=== PATIENT | female | born 1960 | race Caucasian/White ===

== ENCOUNTER → 2016-09-19 | Outpatient (CLI) | payer OTHER ==
--- NOTE | 2016-09-20 13:26 | MM ---
Reason for exam: screening (asymptomatic). Last mammogram was performed 7 months ago. History: Patient is postmenopausal. Family history of breast cancer in paternal grandmother and breast cancer in maternal grandmother. Benign MG stereo VAD BX LT of the left breast, March 06, 2016. Benign US biopsy breast VAD LT of the left breast, March 06, 2016. Excisional biopsy of the right breast, August 2005. Taking estrogen for 2 years beginning at age 46. Physical Findings: A clinical breast exam by your physician is recommended on an annual basis and results should be correlated with mammographic findings. MG 3D Screening Mammo W/Cad Bilateral CC and MLO view(s) were taken. Prior study comparison: February 16, 2016, left breast MG work up mamm w CAD LT. February 14, 2016, bilateral MG screening mammo w CAD. The breast tissue is extremely dense which could obscure a lesion on mammography. Scar marker on the right breast. Previous mammotome biopsy in the left breast x 2. No significant changes when compared with prior studies. ASSESSMENT: Benign, BI-RAD 2 RECOMMENDATION: Routine screening mammogram of both breasts in 1 year.
== END ==
LOC: RADMAMWWP 07:59
PROVIDERS: ATTEND Family Medicine
DX: Z12.31 Encounter for screening mammogram for malignant neoplasm of breast (principal)
CPT/HCPCS: 77063; G0202

== ENCOUNTER → 2018-01-28 | Outpatient (CLI) | payer BC ==
--- NOTE | 2018-01-29 08:07 | MM ---
Reason for exam: screening (asymptomatic). Last mammogram was performed 1 year and 4 months ago. History: Patient is postmenopausal. Family history of breast cancer in paternal grandmother and breast cancer in maternal grandmother. Benign MG stereo VAD BX LT of the left breast, March 06, 2016. Benign US biopsy breast VAD LT of the left breast, March 06, 2016. Excisional biopsy of the right breast, August 2005. Took estrogen for 2 years beginning at age 46. Physical Findings: A clinical breast exam by your physician is recommended on an annual basis and results should be correlated with mammographic findings. MG 3D Screening Mammo W/Cad Bilateral CC and MLO view(s) were taken. Prior study comparison: September 19, 2016, bilateral MG 3d screening mammo w/cad. February 16, 2016, left breast MG work up mamm w CAD LT. The breast tissue is extremely dense which could obscure a lesion on mammography. Previous mammotome biopsy in the left breast. No significant changes when compared with prior studies. ASSESSMENT: Benign, BI-RAD 2 RECOMMENDATION: Routine screening mammogram of both breasts in 1 year.
== END | disposition home or self-care (01) ==
LOC: RADMAMWWP 06:51
PROVIDERS: ATTEND Family Medicine
DX: Z12.31 Encounter for screening mammogram for malignant neoplasm of breast (principal)
CPT/HCPCS: 77063; 77067

== ENCOUNTER → 2018-02-11 | Outpatient (CLI) | payer BC ==
[2018-02-11 08:24] LABS: Appearance,Urine Clear (Clear); Bilirubin,Urine Negative (Negative); Blood,Urine Negative (Negative); Color,Urine Yellow; Glucose,Urine (UA) Negative (Negative); Ketones,Urine Negative (Negative); Leukocyte Esterase,Urine Negative (Negative); Nitrite,Urine Negative (Negative); PH, Urine 5.5 (5.0-8.0); Protein,Urine Negative (Negative); Specific Gravity,Urine 1.015 (1.001-1.035); Urobilinogen,Urine <2.0 mg/dL (<2.0)
[2018-02-11 08:25] LABS: HCT 40.8 % (34.0-46.0); HGB 13.6 gm/dL (11.4-16.0); MCH 29.4 pg (25.0-35.0); MCHC 33.2 g/dL (31.0-37.0); MCV 88.6 fL (80.0-100.0); Mean Platelet Volume 7.1; Platelet Count 224 k/uL (150-450); RBC 4.61 m/uL (3.80-5.40); RDW 13.9 % (11.5-15.5); WBC 4.9 k/uL (3.8-10.6)
[2018-02-11 08:56] LABS: ALT 26 U/L (9-52); AST 22 U/L (14-36); Albumin 4.3 g/dL (3.5-5.0); Alkaline Phosphatase 69 U/L (38-126); Anion Gap 8 mmol/L; Blood Urea Nitrogen 17 mg/dL (7-17); Calcium 9.8 mg/dL (8.4-10.2); Carbon Dioxide 28 mmol/L (22-30); Chloride 106 mmol/L (98-107); Cholesterol 210 mg/dL (<200); Glucose 88 mg/dL (74-99); Potassium 5.1 mmol/L (3.5-5.1); Sodium 142 mmol/L (137-145); Total Bilirubin 0.5 mg/dL (0.2-1.3); Total Protein 6.8 g/dL (6.3-8.2); Triglycerides 44 mg/dL (<150)
[2018-02-11 09:03] LABS: LDL Cholesterol,Calculated 82 mg/dL (0-99)
[2018-02-11 09:06] LABS: HDL Cholesterol 119 mg/dL (40-60)
== END | disposition home or self-care (01) ==
LOC: LABWHC1 06:59
PROVIDERS: ATTEND Family Medicine
DX: Z00.00 Encounter for general adult medical examination without abnormal findings (principal); Z13.9 Encounter for screening, unspecified
CPT/HCPCS: 36415; 80053; 80061; 81003; 85027; 86803

== ENCOUNTER 2018-06-01 10:30 | Emergency (ER) | payer BC ==
[2018-06-01 10:37] VITALS: TEMP 98
--- NOTE | 2018-06-01 11:07 | ED ---
Back Pain HPI - General Chief Complaint: Back Pain/Injury Stated Complaint: fall, back pain Time Seen by Provider: 06/01/18 10:41 Source: patient, RN notes reviewed Limitations: no limitations - History of Present Illness Initial Comments: 57-year-old female presents emergency Department chief complaint of low back pain, rib pain. Patient states that she was walking down 2 steps from her hot tub and states that she twisted and fell hitting the still of the door wall. Patient states that she had her left side of her ribs, low back. She states pain is worse today cannot tolerate work. She states it is worse with movement and deep inspiration. Denies any head or neck injury. Denies any chest pain, bowel bladder incontinence or retention. Denies any hematuria. - Related Data Home Medications Medication Instructions Recorded Confirmed Estrogens, Conjugated [Premarin] 0.625 mg PO DAILY 10/19/14 10/21/14 Ibuprofen [Advil] 400 mg PO Q8HR PRN 10/19/14 10/19/14 Multivitamins, Thera [Theragran] 1 each PO DAILY@1200 10/19/14 10/19/14 Previous Rx's Medication Instructions Recorded Ibuprofen [Motrin] 600 mg PO Q8HR PRN #30 tab 06/01/18 Allergies Allergy/AdvReac Type Severity Reaction Status Date / Time No Known Allergies Allergy Verified 06/01/18 10:37 Review of Systems ROS Statement: Those systems with pertinent positive or pertinent negative responses have been documented in the HPI. ROS Other: All systems not noted in ROS Statement are negative. Past Medical History Past Medical History: No Reported History History of Any Multi-Drug Resistant Organisms: None Reported Past Surgical History: Breast Surgery, Section, Hysterectomy, Orthopedic Surgery Additional Past Surgical History / Comment(s): RIGHT BREAST BIOPSY X3 ,RIGHT KNEE ARTHROSCOPIC Past Anesthesia/Blood Transfusion Reactions: No Reported Reaction Past Psychological History: No Psychological Hx Reported Smoking Status: Never smoker Past Alcohol Use History: Occasional Past Drug Use History: None Reported - Past Family History Mother Family Medical History: Cancer Additional Family Medical History / Comment(s): LUNG CANCER General Exam Limitations: no limitations General appearance: alert, in no apparent distress Head exam: Present: atraumatic, normocephalic, normal inspection Eye exam: Present: normal appearance, PERRL, EOMI. Absent: scleral icterus, conjunctival injection, periorbital swelling Neck exam: Present: normal inspection, full ROM. Absent: tenderness, meningismus, lymphadenopathy Respiratory exam: Present: normal lung sounds bilaterally, chest wall tenderness (Left lower ribs posteriorly). Absent: respiratory distress, wheezes , rales, rhonchi, stridor Cardiovascular Exam: Present: regular rate, normal rhythm, normal heart sounds. Absent: systolic murmur, diastolic murmur, rubs, gallop, clicks GI/Abdominal exam: Present: soft, normal bowel sounds. Absent: distended, tenderness, guarding, rebound, rigid Extremities exam: Present: normal inspection, full ROM, normal capillary refill. Absent: tenderness, pedal edema, joint swelling, calf tenderness Back exam: Present: full ROM, tenderness, paraspinal tenderness, vertebral tenderness (Lumbar) Neurological exam: Present: alert, oriented X3, CN II-XII intact, reflexes normal. Absent: motor sensory deficit Skin exam: Present: warm, dry, intact, normal color. Absent: rash Course Vital Signs 06/01/18 10:35 Temperature 98 F Pulse Rate 78 Respiratory 20 Rate Blood Pressure 138/74 O2 Sat by Pulse 99 Oximetry Medical Decision Making - Medical Decision Making 57-year-old male presented for a fall. X-rays are obtained of the left ribs, lumbar region no acute fracture. Patient will be discharged with follow-up return parameters were discussed. Disposition Clinical Impression: Fall, Rib contusion, Back pain Disposition: HOME SELF-CARE Condition: Stable Instructions: Rib Contusion (ED) Additional Instructions: Please return to the Emergency Department if symptoms worsen or any other concerns. Prescriptions: Ibuprofen [Motrin] 600 mg PO Q8HR PRN #30 tab PRN Reason: Pain Is patient prescribed a controlled substance at d/c from ED?: No Referrals: Vazquez Rubin MD [Primary Care Provider] - 1-2 days Time of Disposition: 11:44
--- NOTE | 2018-06-01 11:30 | XR ---
EXAMINATION TYPE: XR lumbar spine 2 or 3V , 3 VIEWS DATE OF EXAM ORDERED: 06/01/2018 HISTORY: Pain. COMPARISON: None. FINDINGS: Vertebral body height and alignment are maintained. There is no spondylolysis or spondylol isthesis. There is mild, diffuse disc space loss with relative sparing of L5-S1. The pedicles are int act. Paraspinal soft tissues are unremarkable. IMPRESSION: 1. NO ACUTE OSSEOUS ABNORMALITY. 2. MILD DEGENERATIVE CHANGE.
--- NOTE | 2018-06-01 11:32 | XR ---
EXAMINATION TYPE: XR ribs LT w pa chest xray , 5 VIEWS DATE OF EXAM ORDERED: 06/01/2018 HISTORY: Pain. COMPARISON: None. FINDINGS: The lungs are clear. Pleural spaces are clear. Heart size is normal. No pneumothorax is se en. No displaced rib fracture is seen. IMPRESSION: NORMAL CHEST AND LEFT RIBS.
[2018-06-01] MEDS ORDERED: KETOROLAC 30 MG/ML 1 ML VIAL IVP STA (11:49)
[2018-06-01 12:39] VITALS: BP 122/80; PULSE 62; RESP 18
== END 2018-06-01 12:38 | disposition home or self-care (01) ==
LOC: EC 10:30
DX: S20.212A Contusion of left front wall of thorax, initial encounter (principal); M54.5 Low back pain; Z79.899 Other long term (current) drug therapy; W10.9XXA Fall (on) (from) unspecified stairs and steps, initial encounter; W22.8XXA Striking against or struck by other objects, initial encounter; Y93.01 Activity, walking, marching and hiking; Y92.009 Unspecified place in unspecified non-institutional (private) residence as the place of occurrence of the external cause
CPT/HCPCS: 99283; 96374; 71101; 72100; J1885

== ENCOUNTER → 2019-06-24 | Outpatient (CLI) | payer BC ==
--- NOTE | 2019-06-25 11:26 | MM ---
Reason for exam: screening (asymptomatic). Last mammogram was performed 1 year and 5 months ago. History: Patient is postmenopausal. Family history of breast cancer in paternal grandmother and breast cancer in maternal grandmother. Benign MG stereo VAD BX LT of the left breast, March 06, 2016. Benign US biopsy breast VAD LT of the left breast, March 06, 2016. Excisional biopsy of the right breast, August 2005. Took estrogen for 2 years beginning at age 46. Physical Findings: A clinical breast exam by your physician is recommended on an annual basis and results should be correlated with mammographic findings. MG 3D Screening Mammo W/Cad Bilateral CC and MLO view(s) were taken. Prior study comparison: January 28, 2018, bilateral MG 3d screening mammo w/cad. September 19, 2016, bilateral MG 3d screening mammo w/cad. The breast tissue is extremely dense which could obscure a lesion on mammography. There are benign appearing round calcifications bilaterally. Previous mammotome biopsy in the left breast x 2. There is no discrete abnormality. ASSESSMENT: Benign, BI-RAD 2 RECOMMENDATION: Routine screening mammogram of both breasts in 1 year.
== END | disposition home or self-care (01) ==
LOC: RADMAMWWP 15:44
PROVIDERS: ATTEND Family Medicine
DX: Z12.31 Encounter for screening mammogram for malignant neoplasm of breast (principal)
CPT/HCPCS: 77063; 77067

== ENCOUNTER 2020-10-19 08:10 | Emergency (ER) | payer BC ==
[2020-10-19 08:14] VITALS: TEMP 98
[2020-10-19] MEDS ORDERED: SODIUM CHLORIDE 0.9% 1,000 ML IV STA (08:30)
[2020-10-19] MEDS ORDERED: LORazepam 2 MG/ML INJ IV STA (08:30)
--- NOTE | 2020-10-19 08:33 | ED ---
General Adult HPI - General Chief complaint: Overdose Stated complaint: Nausea,Dizziness,Disoriented Time Seen by Provider: 10/19/20 08:17 Source: patient Mode of arrival: ambulatory Limitations: no limitations - History of Present Illness Initial comments: Dictation was produced using [employer] dictation software. please excuse any grammatical, word or spelling errors. Chief Complaint: 59-year-old female presents to the emergency department for nausea, fatigue and weakness after ingestion of marijuana capsule History of Present Illness: 59-year-old female she presents today with symptoms of weakness, disorientation and nausea after ingestion of marijuana capsule. Patient has not had marijuana in more than 40 years. She received this capsule from her family member to help with her sleeping issues. Patient has any abdominal pain. She ingested this pill at around 8:30 PM last night. She states that she felt defects shortly after ingestion and has continued to have some effects. Patient has any medical problems. She takes hormone replacement pills after having had a LENNOX/BSO. Denies any fever, chills or night sweats. The ROS documented in this emergency department record has been reviewed and confirmed by me. Those systems with pertinent positive or negative responses have been documented in the HPI. All other systems are other negative and/or noncontributory. PHYSICAL EXAM: General Impression: Alert and oriented x3, not in acute distress HEENT: Normocephalic atraumatic, extra-ocular movements intact, pupils equal and reactive to light bilaterally, mucous membranes moist. Cardiovascular: Heart regular rate and rhythm Chest: Able to complete full sentences, no retractions, no tachypnea Abdomen: abdomen soft, non-tender, non-distended, no organomegaly Musculoskeletal: Pulses present and equal in all extremities, no peripheral edema Motor: no focal deficits noted Neurological: CN II-XII grossly intact, no focal motor or sensory deficits noted Skin: Intact with no visualized rashes Psych: Flat affect ED course: 59-year-old feel presents with marijuana intoxication after ingestion of oral capsule preparation of marijuana. Vital signs upon arrival shows findings within acceptable limits. After evaluation obtained. CBC, metabolic panel is within acceptable limits. Patient treated with 1 dose of Ativan. Patient is reevaluated at bedside at 9:15 AM. She was observed in the emergency department for proximal one hour in stable medical condition. Patient's clinical presentation consistent with cannabis intoxication. Patient be discharged per she is given a prescription for antiemetics. She advised to go home and rest until the effects wear off. Temperature was discussed. Patient discharged under the care of her neighbor. EKG interpretation: Ventricular rate 84, normal sinus rhythm, NM interval 160, QRS 74, QTC 444. No NM prolongation, no QTC prolongation, no ST or T-wave nate nges noted. Overall, this EKG is unremarkable - Related Data Home Medications Medication Instructions Recorded Confirmed Estrogens, Conjugated [Premarin] 0.625 mg PO DAILY 10/19/14 10/19/20 Omeprazole Magnesium [PriLOSEC OTC] 20 mg PO DAILY 10/19/20 10/19/20 Allergies Allergy/AdvReac Type Severity Reaction Status Date / Time No Known Allergies Allergy Verified 10/19/20 09:01 Review of Systems ROS Statement: Those systems with pertinent positive or pertinent negative responses have been documented in the HPI. ROS Other: All systems not noted in ROS Statement are negative. Past Medical History Past Medical History: No Reported History History of Any Multi-Drug Resistant Organisms: None Reported Past Surgical History: Breast Surgery, Section, Hysterectomy, Orthopedic Surgery Additional Past Surgical History / Comment(s): RIGHT BREAST BIOPSY X3 ,RIGHT KNEE ARTHROSCOPIC Past Anesthesia/Blood Transfusion Reactions: No Reported Reaction Past Psychological History: No Psychological Hx Reported Smoking Status: Never smoker Past Alcohol Use History: Occasional Past Drug Use History: Marijuana - Past Family History Mother Family Medical History: Cancer Additional Family Medical History / Comment(s): LUNG CANCER General Exam Limitations: no limitations Course Vital Signs 10/19/20 08:11 Temperature 98.0 F Pulse Rate 84 Respiratory 16 Rate Blood Pressure 131/81 O2 Sat by Pulse 98 Oximetry Medical Decision Making - Lab Data Result diagrams: 10/19/20 08:30 10/19/20 08:30 Lab Results 10/19/20 10/19/20 Range/Units 08:30 08:30 WBC 6.4 (3.8-10.6) k/uL RBC 4.25 (3.80-5.40) m/uL Hgb 13.2 (11.4-16.0) gm/dL Hct 38.1 (34.0-46.0) % MCV 89.7 (80.0-100.0) fL MCH 31.1 (25.0-35.0) pg MCHC 34.6 (31.0-37.0) g/dL RDW 13.5 (11.5-15.5) % Plt Count 267 (150-450) k/uL MPV 7.3 Neutrophils % 82 % Lymphocytes % 13 % Monocytes % 3 % Eosinophils % 1 % Basophils % 0 % Neutrophils # 5.3 (1.3-7.7) k/uL Lymphocytes # 0.8 L (1.0-4.8) k/uL Monocytes # 0.2 (0-1.0) k/uL Eosinophils # 0.1 (0-0.7) k/uL Basophils # 0.0 (0-0.2) k/uL Sodium 136 L (137-145) mmol/L Potassium 4.5 (3.5-5.1) mmol/L Chloride 106 (98-107) mmol/L Carbon Dioxide 22 (22-30) mmol/L Anion Gap 8 mmol/L BUN 17 (7-17) mg/dL Creatinine 0.64 (0.52-1.04) mg/dL Est GFR (CKD-EPI)AfAm >90 (>60 ml/min/1.73 sqM) Est GFR (CKD-EPI)NonAf >90 (>60 ml/min/1.73 sqM) Glucose 166 H (74-99) mg/dL Calcium 9.2 (8.4-10.2) mg/dL Disposition Clinical Impression: Marijuana intoxication Disposition: HOME SELF-CARE Condition: Good Instructions (If sedation given, give patient instructions): Cannabis Abuse (ED) Is patient prescribed a controlled substance at d/c from ED?: No Referrals: Vazquez Rubin MD [Primary Care Provider] - 1-2 days
[2020-10-19] MEDS ORDERED: ONDANSETRON 4 MG/2 ML VIAL IVP STA (08:37)
[2020-10-19 08:47] LABS: Basophils % (A) 0 %; Eosinophils # (A) 0.1 k/uL (0-0.7); Eosinophils % (A) 1 %; HCT 38.1 % (34.0-46.0); HGB 13.2 gm/dL (11.4-16.0); Lymphocytes # (A) 0.8 k/uL (1.0-4.8); Lymphocytes % (A) 13 %; MCH 31.1 pg (25.0-35.0); MCHC 34.6 g/dL (31.0-37.0); MCV 89.7 fL (80.0-100.0); Mean Platelet Volume 7.3; Monocytes # (A) 0.2 k/uL (0-1.0); Monocytes % (A) 3 %; Neutrophils # (A) 5.3 k/uL (1.3-7.7); Neutrophils % (A) 82 %; Platelet Count 267 k/uL (150-450); RBC 4.25 m/uL (3.80-5.40); RDW 13.5 % (11.5-15.5); WBC 6.4 k/uL (3.8-10.6)
[2020-10-19 09:02] LABS: African American GFR (CKD) >90 (>60 ml/min/1.73 sqM); Anion Gap 8 mmol/L; Blood Urea Nitrogen 17 mg/dL (7-17); Calcium 9.2 mg/dL (8.4-10.2); Carbon Dioxide 22 mmol/L (22-30); Chloride 106 mmol/L (98-107); Glucose 166 mg/dL (74-99); Non-African American GFR(CKD) >90 (>60 ml/min/1.73 sqM); Potassium 4.5 mmol/L (3.5-5.1); Sodium 136 mmol/L (137-145)
[2020-10-19 09:34] VITALS: BP 118/71; PULSE 74; RESP 18
--- NOTE | 2020-10-19 13:54 | ED ---
Medical Decision Making - Lab Data Result diagrams: 10/19/20 08:30 10/19/20 08:30 Lab Results 10/19/20 10/19/20 Range/Units 08:30 08:30 WBC 6.4 (3.8-10.6) k/uL RBC 4.25 (3.80-5.40) m/uL Hgb 13.2 (11.4-16.0) gm/dL Hct 38.1 (34.0-46.0) % MCV 89.7 (80.0-100.0) fL MCH 31.1 (25.0-35.0) pg MCHC 34.6 (31.0-37.0) g/dL RDW 13.5 (11.5-15.5) % Plt Count 267 (150-450) k/uL MPV 7.3 Neutrophils % 82 % Lymphocytes % 13 % Monocytes % 3 % Eosinophils % 1 % Basophils % 0 % Neutrophils # 5.3 (1.3-7.7) k/uL Lymphocytes # 0.8 L (1.0-4.8) k/uL Monocytes # 0.2 (0-1.0) k/uL Eosinophils # 0.1 (0-0.7) k/uL Basophils # 0.0 (0-0.2) k/uL Sodium 136 L (137-145) mmol/L Potassium 4.5 (3.5-5.1) mmol/L Chloride 106 (98-107) mmol/L Carbon Dioxide 22 (22-30) mmol/L Anion Gap 8 mmol/L BUN 17 (7-17) mg/dL Creatinine 0.64 (0.52-1.04) mg/dL Est GFR (CKD-EPI)AfAm >90 (>60 ml/min/1.73 sqM) Est GFR (CKD-EPI)NonAf >90 (>60 ml/min/1.73 sqM) Glucose 166 H (74-99) mg/dL Calcium 9.2 (8.4-10.2) mg/dL Disposition Clinical Impression: Marijuana intoxication Disposition: HOME SELF-CARE Condition: Good Instructions (If sedation given, give patient instructions): Cannabis Abuse (ED) Prescriptions: Ondansetron Odt [Zofran Odt] 4 mg PO Q8HR PRN #12 tab PRN Reason: Nausea Is patient prescribed a controlled substance at d/c from ED?: No Referrals: Vazquez Rubin MD [Primary Care Provider] - 1-2 days
== END 2020-10-19 09:33 | disposition home or self-care (01) ==
LOC: EC 08:10
DX: F12.929 Cannabis use, unspecified with intoxication, unspecified (principal)
CPT/HCPCS: 36415; 93005; 80048; 85025; 99285; 96374; 96375; 96361; J2060; J2405

== ENCOUNTER → 2020-10-21 | Outpatient (CLI) | payer BC ==
--- NOTE | 2020-10-26 08:16 | MM ---
Reason for exam: screening (asymptomatic). Last mammogram was performed 1 year and 4 months ago. History: Patient is postmenopausal. Family history of breast cancer in paternal grandmother and breast cancer in maternal grandmother. Benign MG stereo VAD BX LT of the left breast, March 06, 2016. Benign US biopsy breast VAD LT of the left breast, March 06, 2016. Excisional biopsy of the right breast, August 2005. Taking estrogen for 2 years beginning at age 46. Physical Findings: A clinical breast exam by your physician is recommended on an annual basis and results should be correlated with mammographic findings. MG 3D Screening Mammo W/Cad Bilateral CC and MLO view(s) were taken. Prior study comparison: June 24, 2019, bilateral MG 3d screening mammo w/cad. January 28, 2018, bilateral MG 3d screening mammo w/cad. The breast tissue is extremely dense which could obscure a lesion on mammography. Architectural distortion inferior right breast posterior depth. Density medial left breast posterior depth. Benign appearing vascular calcifications. Previous mammotome biopsy in the left breast. ASSESSMENT: Incomplete: need additional imaging evaluation, BI-RAD 0 RECOMMENDATION: Special view mammogram of both breasts. If lesion persists on supplemental views, image directed ultrasound is recommended. [facility] will attempt to contact patient to return for supplemental views and ultrasound if indicated.
== END | disposition home or self-care (01) ==
LOC: RADMAMWWP 14:33
PROVIDERS: ATTEND Family Medicine
DX: Z12.31 Encounter for screening mammogram for malignant neoplasm of breast (principal); Z80.3 Family history of malignant neoplasm of breast
CPT/HCPCS: 77063; 77067

== ENCOUNTER → 2020-11-02 | Outpatient (CLI) | payer BC ==
--- NOTE | 2020-11-02 14:44 | MM ---
Reason for exam: additional evaluation requested from abnormal screening. Last mammogram was performed less than 1 month ago. History: Patient is postmenopausal. Family history of breast cancer in paternal grandmother and breast cancer in maternal grandmother. Benign MG stereo VAD BX LT of the left breast, March 06, 2016. Benign US biopsy breast VAD LT of the left breast, March 06, 2016. Excisional biopsy of the right breast, August 2005. Taking estrogen for 2 years beginning at age 46. Physical Findings: Nurse did not find any significant physical abnormalities on exam. MG 3D Work Up W/Cad SANDRA Bilateral LM view(s) were taken. Spot compression MLO view(s) were taken of the right breast. Spot compression CC, CCRM, and CC view(s) were taken of the left breast. Prior study comparison: October 21, 2020, bilateral MG 3d screening mammo w/cad. June 24, 2019, bilateral MG 3d screening mammo w/cad. The breast tissue is extremely dense which could obscure a lesion on mammography. Finding: Stable architectural distortion in the lower inner quadrant of the right breast consistent with known excisional changes on additional views. No distinct lesion persists on additional views. These results were verbally communicated with the patient and result sheet given to the patient on 11/02/20. ASSESSMENT: Benign, BI-RAD 2 RECOMMENDATION: Return to routine screening mammogram schedule for both breasts.
== END | disposition home or self-care (01) ==
LOC: RADMAMWWP 10:52
PROVIDERS: ATTEND Family Medicine
DX: N64.89 Other specified disorders of breast (principal); Z78.0 Asymptomatic menopausal state; Z80.3 Family history of malignant neoplasm of breast
CPT/HCPCS: 77062; 77066

== ENCOUNTER → 2022-02-01 | Outpatient (CLI) | payer BC ==
--- NOTE | 2022-02-02 19:53 | MM ---
Reason for Exam: Screening (asymptomatic). Last mammogram was performed 1 year(s) and 4 month(s) ago. Patient History: Menarche at age 11. First Full-Term at age 18. Left ovary removed at age 46. Right ovary removed at age 46. Hysterectomy at age 46. Postmenopausal. Currently using Estrogen, beginning at age 46 for 2 years. 08/2005, Excisional Biopsy on the Right side. 03/06/2016, Benign Core Biopsy on the left side. 03/06/2016, Benign Core Biopsy on the left side. Paternal grandmother had breast cancer. Maternal grandmother had breast cancer. Risk Values: Lin 5 year model risk: 1.8%. NCI Lifetime model risk: 8.4%. Prior Study Comparison: 06/24/2019 Bilateral Screening Mammogram, [facility]. 10/21/2020 Bilateral Screening Mammogram, [facility]. 11/02/2020 Bilateral Diagnostic Mammogram, [facility]. Tissue Density: The breast tissue is extremely dense which could obscure a lesion on mammography. Findings: Analyzed By CAD. 3 microclips in the left breast from prior biopsies. Benign bilateral vascular calcifications. Benign coarse calcifications upper quadrant left breast. No discrete abnormality seen. Overall Assessment: Benign, BI-RAD 2 Management: Screening Mammogram of both breasts in 1 year. 1. Patient should continue monthly self breast exams. 2. A clinical breast exam by your physician is recommended on an annual basis. 3. This exam should not preclude additional follow-up of suspicious palpable abnormalities. Electronically signed and approved by: Jed Vinson M.D. Radiologist
== END | disposition home or self-care (01) ==
LOC: RADMAMWWP 07:09
PROVIDERS: ATTEND Family Medicine
DX: Z12.31 Encounter for screening mammogram for malignant neoplasm of breast (principal)
CPT/HCPCS: 77063; 77067

== ENCOUNTER → 2022-10-12 | Outpatient (CLI) | payer BC ==
--- NOTE | 2022-10-12 15:11 | CT ---
EXAMINATION TYPE: CT sinus wo con DATE OF EXAM: 10/12/2022 COMPARISON: None HISTORY: Pt states her Tear ducts keep clogging up. Hx of cataracts and glaucoma. R/O abscess or tumo r before drainage tubes are placed. CT DLP: 500.1 mGycm. Automated Exposure Control for Dose Reduction was Utilized. TECHNIQUE: CT scan of the sinuses is performed without contrast, axial images are obtained, coronal r eformatted images are also reviewed. FINDINGS: The paranasal sinuses including the frontal, ethmoid, sphenoid, and maxillary sinuses bila terally mild to moderate mucosal thickening greater on the left of the maxillary sinuses. There is as a air-fluid level on the left. Ethmoid air cells demonstrate very minimal mucosal thickening. Fronta l sinus and sphenoid sinus demonstrate no evidence of mucosal thickening. The ostiomeatal complex is patent bilaterally on the coronal images. Facet arthropathy is seen. Dental artifact noted. Visualized portion of mastoid air cells show no abnormal opacification. The globes are intact bilate rally. IMPRESSION: 1. [id number] sinusitis of the maxillary sinuses. Acute component with regard to the left maxil la nena sinusitis in the differential diagnosis correlate clinically.
== END | disposition home or self-care (01) ==
LOC: RADCTMAIN 14:28
PROVIDERS: ATTEND Otolaryngology
DX: J32.0 Chronic maxillary sinusitis (principal); H04.559 Acquired stenosis of unspecified nasolacrimal duct
CPT/HCPCS: 70486

== ENCOUNTER → 2023-08-20 | Outpatient (CLI) | payer BC ==
--- NOTE | 2023-08-23 17:33 | MM ---
Reason for Exam: Screening (asymptomatic). Last mammogram was performed 1 year(s) and 6 month(s) ago. Patient History: Menarche at age 11. First Full-Term at age 18. Left ovary removed at age 46. Right ovary removed at age 46. Hysterectomy at age 46. Postmenopausal. Currently using Estrogen, beginning at age 46 for 2 years. 08/2005, Excisional Biopsy on the Right side. 03/06/2016, Benign Core Biopsy on the left side. 03/06/2016, Benign Core Biopsy on the left side. Paternal grandmother had breast cancer. Maternal grandmother had breast cancer. Risk Values: Lin 5 year model risk: 1.8%. NCI Lifetime model risk: 8.2%. Prior Study Comparison: 10/21/2020 Bilateral Screening Mammogram, [facility]. 11/02/2020 Bilateral Diagnostic Mammogram, [facility]. 02/01/2022 Bilateral MG 3D screening mammo w/cad, [facility]. Tissue Density: The breasts are extremely dense, which lowers the sensitivity of mammography. Findings: Analyzed By CAD. The pattern is symmetrical. Surgical clips are within the left breast. Benign calcifications within the left breast. Benign vascular calcification is present bilaterally. No suspicious groups of microcalcifications, spiculated or lobular masses, architectural distortion or other secondary signs of malignancy are mammographically apparent. Overall Assessment: Benign, BI-RAD 2 Management: Screening Mammogram of both breasts in 1 year. A negative mammogram report should not preclude additional follow up of suspicious palpable abnormalities. Patient should continue monthly self breast exam. A clinical breast exam by your physician is recommended on an annual basis and results should be correlated with mammographic findings. Electronically signed and approved by: Pedrito Barber D.O. Radiologis
== END | disposition home or self-care (01) ==
LOC: RADMAMWWP 09:15
PROVIDERS: ATTEND Family Medicine
DX: Z12.31 Encounter for screening mammogram for malignant neoplasm of breast (principal); Z78.0 Asymptomatic menopausal state; Z80.3 Family history of malignant neoplasm of breast
CPT/HCPCS: 77067

== ENCOUNTER 2024-05-05 15:01 | Emergency (ER) | payer BC ==
[2024-05-05 15:30] VITALS: RESP 18
--- NOTE | 2024-05-05 16:00 | ED ---
Abdominal Pain HPI - General Source: patient, RN notes reviewed Mode of arrival: ambulatory Limitations: no limitations <Jeanne Woo - Last Filed: 05/05/24 15:59> <Julio Cesar Augustine - Last Filed: 05/05/24 22:10> - General Chief Complaint: Abdominal Pain Stated Complaint: Right flank pain Time Seen by Provider: 05/05/24 15:55 - History of Present Illness Initial Comments: Quick Note: This is a 63 year old female who presents to the emergency department for abdominal pain. States that this is primarily in the right lower quadrant. Pain started yesterday. Her PCP advised she come in to rule out appendicitis. Denies any changes in bowel/bladder habits or fevers/chills. (Jeanne Woo) Dictation was produced using [employer] dictation software. please excuse any grammatical, word or spelling errors. Chief Complaint: 63-year-old female presents to the emergency department for rule out acute appendicitis History of Present Illness: Patient 63-year-old female has been having inte rmittent symptoms of right lower quadrant abdominal pain she was seen at [facility] urgent care where she was told to come to the ER for CT scan to rule out acute appendicitis. Patient has been having bowel movements. She denies any nausea vomiting. Patient history of hysterectomy. No other abdominal surgeries. Denies any fever or constitutional symptoms. The ROS documented in this emergency department record has been reviewed and confirmed by me. Those systems with pertinent positive or negative responses have been documented in the HPI. All other systems are other negative and/or noncontributory. (Julio Cesar Augustine) - Related Data Home Medications Medication Instructions Recorded Confirmed Estrogens, Conjugated [Premarin] 0.625 mg PO DAILY 10/19/14 10/19/20 Omeprazole Magnesium [PriLOSEC OTC] 20 mg PO DAILY 10/19/20 10/19/20 Previous Rx's Medication Instructions Recorded Ondansetron Odt [Zofran Odt] 4 mg PO Q8HR PRN #12 tab 10/19/20 Allergies Allergy/AdvReac Type Severity Reaction Status Date / Time No Known Allergies Allergy Verified 05/05/24 15:29 Review of Systems ROS Other: All systems not noted in ROS Statement are negative. <Jeanne Woo - Last Filed: 05/05/24 15:59> ROS Other: All systems not noted in ROS Statement are negative. <Julio Cesar Augustine - Last Filed: 05/05/24 22:10> ROS Statement: Those systems with pertinent positive or pertinent negative responses have been documented in the HPI. Past Medical History Past Medical History: No Reported History History of Any Multi-Drug Resistant Organisms: None Reported Past Surgical History: Breast Surgery, Section, Hysterectomy, Or thopedic Surgery Additional Past Surgical History / Comment(s): RIGHT BREAST BIOPSY X3 ,RIGHT KNEE ARTHROSCOPIC Past Anesthesia/Blood Transfusion Reactions: No Reported Reaction Past Psychological History: No Psychological Hx Reported Smoking Status: Never smoker Past Alcohol Use History: Occasional Past Drug Use History: Marijuana - Past Family History Mother Family Medical History: Cancer Additional Family Medical History / Comment(s): LUNG CANCER <Jeanne Woo - Last Filed: 05/05/24 15:59> General Exam Limitations: no limitations <Jeanne Woo - Last Filed: 05/05/24 15:59> <Julio Cesar Augustine - Last Filed: 05/05/24 22:10> - General Exam Comments Initial Comments: Visual Physical Exam Vital signs reviewed General: Well-appearing, nontoxic, no acute distress. Head: Normocephalic, atraumatic Eyes: PERRLA, EOMI ENT: Airway patent Chest: Nonlabored breathing Skin: No visual rash, normal skin tone Neuro: Alert and oriented 3 Musculoskeletal: No gross abnormalities (Jeanne Woo) PHYSICAL EXAM: General Impression: Alert and oriented x3, not in acute distress HEENT: Normocephalic atraumatic, extra-ocular movements intact, pupils equal and reactive to light bilaterally, mucous membranes moist. Cardiovascular: Heart regular rate and rhythm Chest: Able to complete full sentences, no retractions, no tachypnea Abdomen: abdomen soft, non-tender, non-distended, no organomegaly Musculoskeletal: Pulses present and equal in all extremities, no peripheral edema Motor: no focal deficits noted Neurological: CN II-XII grossly intact, no focal motor or sensory deficits noted Skin: Intact with no visualized rashes Psych: Normal affect and mood (Julio Cesar Augustine) Course Vital Signs 05/05/24 15:26 Temperature 98.6 F Pulse Rate 74 Respiratory 18 Rate Blood Pressure 189/91 O2 Sat by Pulse 98 Oximetry Medical Decision Making <Jeanne Woo - Last Filed: 05/05/24 15:59> - Lab Data Result diagrams: 05/05/24 16:50 05/05/24 16:50 <FawnJulio Cesar D - Last Filed: 05/05/24 22:10> - Medical Decision Making I performed the QuickNote portion of this chart. Signed Jeanne Woo PA-C. (Jeanne Woo) Was pt. sent in by a medical professional or institution (RIMMA Segal, SALES MARKETING DIRECTOR, urgent care, hospital, or long term...) When possible be specific @ -No Did you speak to anyone other than the patient for history (EMS, parent, family, police, friend...)? What history was obtained from this source @ -No Did you review nursing and triage notes (agree or disagree)? Why? @ -I reviewed and agree with nursing and triage notes Were old charts reviewed (outside hosp., previous admission, EMS record, old EKG, old radiological studies, urgent care reports/EKG's, long term records)? Report findings @ -No old charts were reviewed Differential Diagnosis (chest pain, altered mental status, abdominal pain women, abdominal pain men, vaginal bleeding, musculoskeletal, weakness, fever, dyspnea, syncope, headache, dizziness, GI bleed, back pain, seizure, CVA, palpatations, mental health)? @ -Differential Abdominal Pain Women: Appendicitis, Cholecystitis, diverticulosis, ischemic bowel, pancreatitis, hepatitis, UTI, gastroenteritis, AAA, incarcerated hernia, bowel obstruction, constipation, inflammatory bowel, hepatitis, peptic ulcer disease, splenic infarction, perforated viscus, vulvitis, ovarian torsion, PID, kidney stone, placenta abruption, this is not meant to be an all-inclusive list EKG interpreted by me (3pts min.). @ -None done X-rays interpreted by me (1pt min.). @ -None done CT interpreted by me (1pt min.). @ -CT of the abdomen pelvis shows no acute appendicitis. There does appear to be findings of mild small bowel ileus with no obstruction U/S interpreted by me (1pt. min.). @ -None done What testing was considered but not performed or refused? (CT, X-rays, U/S, labs)? Why? @ -None What meds were considered but not given or refused? Why? @ -None Was smoking cessation discussed for >3mins.? @ -No Were there social determinants of health that impacted care today? How? (Homelessness, low income, unemployed, alcoholism, drug addiction, transportation, low edu. Level, literacy, decrease access to med. care, [facility], rehab)? @ -No Was there de-escalation of care discussed even if they declined (Discuss DNR or withdrawal of care, Hospice)? DNR status @ -No What co-morbidities impacted this encounter? (DM, HTN, Smoking, COPD, CAD, Cancer, CVA, ARF, Chemo, Hep., AIDS, mental health diagnosis, sleep apnea, morbid obesity)? @ -None Was patient admitted / discharged? Hospital course, mention meds given and route, prescriptions, significant lab abnormalities, going to OR and other perti nent info. @ -63-year-old female presents to the emergency department from outpatient clinic for concerns of acute appendicitis. Vital signs upon arrival are within acceptable limits. Patient abdomen soft nontender. Asymptomatic at the bedside. Vital signs stable. Laboratory evaluation obtained. Labs are unremarkable. No leukocytosis. Abdominal labs negative. Urinalysis negative. CT shows mild small bowel ileus. Patient evaluated in the waiting room due to lack of beds. She has a benign abdominal examination. Patient offered hospital admission for inpatient monitoring of small bowel ileus. She states that she feels well and would like to be discharged. Patient given outpatient referral to GI and advised to follow-up with primary care doctor. Return precautions discussed. Patient is agreeable with plan. Did you discuss the management of the patient with other professionals (professionals i.e. , PA, SALES MARKETING DIRECTOR, lab, RT, psych nurse, social worker assistant, director correctional agency, teacher, customs officer, case investigator)? Give summary @ -No Was critical care preformed (if so, how long)? @ -No Undiagnosed new problem with uncertain prognosis? @ -No Drug Therapy requiring intensive monitoring for toxicity (Heparin, Nitro, Insulin, Cardizem)? @ -No Were any procedures done? @ -No Diagnosis/symptom? Acute, or Chronic, or Acute on Chronic? Uncomplicated (without systemic symptoms) or Complicated (systemic symptoms)? @ -Small bowel ileus Side effects of treatment? @ -No Exacerbation, Progression, or Severe Exacerbation? @ -No Poses a threat to life or bodily function? How? (Chest pain, USA, SD, pneumonia, PE, COPD, DKA, ARF, appy, cholecystitis, CVA, Diverticulitis, Homicidal, Suicida l, threat to staff... and all critical care pts) @ -yes (Julio Cesar Augustine) - Lab Data Lab Results 05/05/24 05/05/24 05/05/24 Range/Units 15:34 16:50 16:50 WBC 5.1 (3.8-10.6) k/uL RBC 4.55 (3.80-5.40) m/uL Hgb 13.9 (11.4-16.0) gm/dL Hct 41.2 (34.0-46.0) % MCV 90.4 (80.0-100.0) fL MCH 30.6 (25.0-35.0) pg MCHC 33.9 (31.0-37.0) g/dL RDW 13.7 (11.5-15.5) % Plt Count 226 (150-450) k/uL MPV 7.3 Neutrophils % 60 % Lymphocytes % 29 % Monocytes % 7 % Eosinophils % 2 % Basophils % 0 % Neutrophils # 3.1 (1.3-7.7) k/uL Lymphocytes # 1.5 (1.0-4.8) k/uL Monocytes # 0.3 (0-1.0) k/uL Eosinophils # 0.1 (0-0.7) k/uL Basophils # 0.0 (0-0.2) k/uL Sodium 139 (137-145) mmol/L Potassium 4.3 (3.5-5.1) mmol/L Chloride 104 (98-107) mmol/L Carbon Dioxide 25 (22-30) mmol/L Anion Gap 10 mmol/L BUN 14 (7-17) mg/dL Creatinine 0.65 (0.52-1.04) mg/dL Est GFR (CKD-EPI)AfAm >90 (>60 ml/min/1.73 sqM) Est GFR (CKD-EPI)NonAf >90 (>60 ml/min/1.73 sqM) Glucose 86 (74-99) mg/dL Calcium 9.8 (8.4-10.2) mg/dL Total Bilirubin 0.8 (0.2-1.3) mg/dL AST 30 (14-36) U/L ALT 27 (4-34) U/L Alkaline Phosphatase 76 (38-126) U/L Total Protein 7.4 (6.3-8.2) g/dL Albumin 5.0 (3.5-5.0) g/dL Amylase 45 (30-110) U/L Lipase 66 (23-300) U/L Urine Color Colorless Urine Appearance Clear (Clear) Urine pH 7.0 (5.0-8.0) Ur Specific [place] 1.005 (1.001-1.035) Urine Protein Negative (Negative) Urine Glucose (UA) Negative (Negative) Urine Ketones Negative (Negative) Urine Blood Negative (Negative) Urine Nitrite Negative (Negative) Urine Bilirubin Negative (Negative) Urine Urobilinogen <2.0 (<2.0) mg/dL Ur Leukocyte Esterase Negative (Negative) Disposition <Jeanne Woo - Last Filed: 05/05/24 15:59> Is patient prescribed a controlled substance at d/c from ED?: No Time of Disposition: 22:10 <Julio Cesar Augustine - Last Filed: 05/05/24 22:10> Clinical Impression: Ileus Disposition: HOME SELF-CARE Condition: Fair Instructions (If sedation given, give patient instructions): Ileus (ED) Referrals: Vazquez Rubin MD [Primary Care Provider] - 1-2 days Adri Grayson MD [STAFF PHYSICIAN] - 1-2 days
[2024-05-05 17:10] LABS: WBC 5.1 k/uL (3.8-10.6)
[2024-05-05 17:11] LABS: Basophils % (A) 0 %; Eosinophils # (A) 0.1 k/uL (0-0.7); Eosinophils % (A) 2 %; HCT 41.2 % (34.0-46.0); HGB 13.9 gm/dL (11.4-16.0); Lymphocytes # (A) 1.5 k/uL (1.0-4.8); Lymphocytes % (A) 29 %; MCH 30.6 pg (25.0-35.0); MCHC 33.9 g/dL (31.0-37.0); MCV 90.4 fL (80.0-100.0); Mean Platelet Volume 7.3; Monocytes # (A) 0.3 k/uL (0-1.0); Monocytes % (A) 7 %; Neutrophils # (A) 3.1 k/uL (1.3-7.7); Neutrophils % (A) 60 %; Platelet Count 226 k/uL (150-450); RBC 4.55 m/uL (3.80-5.40); RDW 13.7 % (11.5-15.5)
[2024-05-05 17:27] LABS: ALT 27 U/L (4-34); AST 30 U/L (14-36); African American GFR (CKD) >90 (>60 ml/min/1.73 sqM); Alkaline Phosphatase 76 U/L (38-126); Amylase 45 U/L (30-110); Anion Gap 10 mmol/L; Blood Urea Nitrogen 14 mg/dL (7-17); Calcium 9.8 mg/dL (8.4-10.2); Carbon Dioxide 25 mmol/L (22-30); Chloride 104 mmol/L (98-107); Glucose 86 mg/dL (74-99); Lipase 66 U/L (23-300); Non-African American GFR(CKD) >90 (>60 ml/min/1.73 sqM); Potassium 4.3 mmol/L (3.5-5.1); Sodium 139 mmol/L (137-145); Total Bilirubin 0.8 mg/dL (0.2-1.3); Total Protein 7.4 g/dL (6.3-8.2)
--- NOTE | 2024-05-05 21:12 | CT ---
EXAMINATION TYPE: CT abdomen pelvis w con DATE OF EXAM: 05/05/2024 8:59 PM COMPARISON: None. CLINICAL INDICATION: Female, 63 years old with history of RLQ abdominal pain, RLQ abdominal pain [place] yesterday. TECHNIQUE: Axial images were obtained from above the diaphragm to the pubic rami in the axial plane a t 5 mm thick sections. Reconstructed images are reviewed on the computer in the coronal plane. CONTRAST: 100cc mL of Isovue 300. Study performed without Oral Contrast DLP: 581.7 mGycm, Automated exposure control for dose reduction was used. FINDINGS: Limited CT sections are obtained the lung bases. The lung bases are clear. CT ABDOMEN: Liver: Normal Spleen: Normal Pancreas: Normal Adrenal glands: The adrenal glands are normal. Gallbladder: Normal Kidneys: No masses are evident. No hydronephrosis is present. Oral renal cysts at the inferior pole right kidney. No renal stones evident. Aorta: Normal Inferior vena cava: Normal. CT PELVIS: No free fluid is within the pelvis. Loops of bowel within the abdomen and pelvis are normal. There are fluid-filled small bowel loops. Mi ld ileus may be present. No obstruction is identified. This study is without oral contrast limitin g bowel evaluation. Appendix: Normal as visualized. No adjacent inflammatory changes. Urinary bladder: Normal. Genitourinary structures: Uterus and ovaries are not identified. Osseous structures: No suspicious lytic or sclerotic lesions. IMPRESSION: 1. Normal-appearing appendix. 2. Mild small bowel ileus may be present. No obstruction identified. 3. Etiology for right lower quadrant pain not otherwise identified [facility], , 05/05/2024 9:10 PM
[2024-05-05 21:22] LABS: Appearance,Urine Clear (Clear); Bilirubin,Urine Negative (Negative); Blood,Urine Negative (Negative); Color,Urine Colorless; Glucose,Urine (UA) Negative (Negative); Ketones,Urine Negative (Negative); Leukocyte Esterase,Urine Negative (Negative); Nitrite,Urine Negative (Negative); Protein,Urine Negative (Negative); Specific Gravity,Urine 1.005 (1.001-1.035); Urobilinogen,Urine <2.0 mg/dL (<2.0)
[2024-05-05 22:22] VITALS: BP 180/120; PULSE 72; TEMP 98
== END 2024-05-05 22:24 | disposition home or self-care (01) ==
LOC: EC 15:01
DX: K56.7 Ileus, unspecified (principal)
CPT/HCPCS: 80053; 82150; 83690; 85025; 74177; 99284; Q9967; 36415; 81003